=== PATIENT | male | born 1970 | race Caucasian/White ===

== ENCOUNTER 2017-06-04 15:14 | Emergency (ER) | payer OTHER ==
--- NOTE | 2017-06-04 16:30 | DIAGNOSTIC IMAGING REPORT ---
PROCEDURE: CT ABDOMEN/PELVIS W/O CONTRAST INDICATION: Left flank pain TECHNIQUE: Axial CT images were obtained through the abdomen and pelvis without IV contrast. Coronal and sagittal reformations were created. COMPARISON: 08/02/2015 FINDINGS: Clear lung bases. Normal size heart. No hiatal hernia. The unenhanced appearance of the liver, gallbladder, adrenal glands, kidneys, pancreas and spleen is normal. The abdominal aorta is normal in its course and caliber without atherosclerosis. There are no suspicious calcifications, retroperitoneal adenopathy or masses. The stomach, upper bowel loops, and mesentery appears normal. Intact anterior abdominal wall. No free fluid, or inflammation. Surgical changes of left inguinal hernia repair. The unenhanced appearance of the prostate gland, seminal vesicles, urinary bladder, pelvic vessels, and pelvic bowel loops is normal. Normal appendix. No suspicious calcifications, free fluid, or mass. Intact osseous structures. IMPRESSION: 1. No evidence of urinary calcification or obstructive uropathy. 2. Discussed with Dr. Novoa in the emergency room. All CT scans at this facility use dose modulation, iterative reconstruction, and/or weight-based dosing when appropriate to reduce radiation dose to as low as reasonably achievable.
--- NOTE | 2017-06-04 18:03 | ED CLINICAL REPORT ---
Clinical Report - Physicians/Mid Levels [facility] [address] [place] [address] 06/04/2017 15:15 Patient: ANANDA ESPOSITO Time Seen: 15:45 Jun 04 2017. Arrived- By private vehicle. Historian- patient. CPT: ER phys charges level 4 (#[id number]). HISTORY OF PRESENT ILLNESS Chief Complaint: ABDOMINAL PAIN. At its maximum, severity described as moderate. When seen in the E.D., severity described as moderate. It is described as "pain" and it is described as located in the left upper quadrant. This started today and is still present. No nausea, vomiting or diarrhea. Similar symptoms previously: None. Recent medical care: Not recently seen/assessed. REVIEW OF SYSTEMS No constipation, black stools, hematemesis, difficulty with urination or pain with urination. No urinary frequency, bloody stools, fever, headache or sore throat. No chest pain, difficulty breathing, cough, joint pain or skin rash. No chills or back pain. Denies current . All systems otherwise negative, except as recorded above. PAST HISTORY Hypercholesterolemia. Thyroid. ADDITIONAL SURGERIES: Hernia Repair. Laparoscopy. Tonsillectomy. Vasectomy. Medications: Omeprazole Oral. Mirtazapine Oral. Simvastatin Oral. Levothyroxine Sodium Oral. Allergies: None. SOCIAL HISTORY Occasional alcohol use. History of drug use: marijuana. ADDITIONAL NOTES The nursing notes have been reviewed. PHYSICAL EXAM Vital Signs: 06/04/2017 15:19 BP: 170/97. HR: 50. RR: 20. O2 saturation: 98%. Temp: 97 F. Pain level now: 10/10. Appearance: Alert. No acute distress. Eyes: Eyes normal inspection. ENT: Pharynx normal. Neck: Normal inspection. Neck supple. CVS: Normal heart rate and rhythm. Heart sounds normal. Pulses normal. Respiratory: No respiratory distress. Breath sounds normal. Abdomen: Soft. Mild tenderness in the left upper quadrant. No guarding. Bowel sounds normal. Back: Normal inspection. No CVA tenderness. Skin: Skin warm. Normal skin color. No rash. Extremities: Extremities exhibit normal ROM. No lower extremity edema. Neuro: Oriented X 3. No motor deficit. No sensory deficit. LABS, X-RAYS, AND EKG Abdominal CT: No acute disease. Laboratory Tests: UA-Culture if indicated: (KEVIN: 06/04/2017 15:40) ( MsgRcvd 06/04/2017 16:25) Final results Test Result Flag Units (Reference) URINE COLOR YELLOW URINE APPEARANCE CLEAR URINE GLUCOSE NEGATIVE (NEGATIVE) URINE BILIRUBIN NEGATIVE (NEGATIVE) URINE KETONE TRACE (NEGATIVE) URINE SPECIFIC GRAVITY 1.015 (1.010-1.030) URINE PH 6.0 (5.0-8.0) URINE PROTEIN NEGATIVE (NEGATIVE) URINE UROBILINOGEN 0.2 EU/dL (0.2-1.0) URINE NITRITE NEGATIVE (NEGATIVE) URINE BLOOD NEGATIVE (NEGATIVE) URINE LEUK ESTERASE NEGATIVE (NEGATIVE) URINE RBC NONE SEEN rbc/hpf (0-1) URINE WBC RARE wbc/hpf (0-1) URINE EPITHELIAL CELLS RARE EPI/hpf (0-5) URINE BACTERIA NONE SEEN (NONE SEEN) URINE COMMENT CULT NOT INDICATED URINE CULTURES ARE SET-UP BASED ON THE FOLLOWING CRITERIA:POSITIVE NITRITEPOSITIVE LEUKOCYTE ESTERASEGREATER THAN 10 WHITE BLOOD CELLSMODERATE (2+) OR GREATER BACTERIA CBC w Diff: (KEVIN: 06/04/2017 15:20) ( MsgRcvd 06/04/2017 17:37) Final results Test Result Flag Units (Reference) WHITE BLOOD COUNT 6.4 K/uL (4.5-11.5) RED BLOOD COUNT 5.32 M/uL (4.50-5.90) HEMOGLOBIN 15.9 gm/dL (13.5-17.5) HEMATOCRIT 46.6 % (41.0-53.0) MEAN CELL VOLUME 88 fL (80-100) MEAN CORPUSCULAR HGB 30 pg (26-34) MEAN CORPUSCULAR HGB CONC 34 g/dL (31-37) RED CELL DISTRIBUTION WIDTH 12.5 % (11.6-14.8) PLATELET COUNT 251 K/uL (150-400) NEUTROPHIL % 44.0 L % (50-75) LYMPH % 42.0 H % (25-40) MONO % 10.9 % (3-14) EOSINOPHIL % 2.7 % (0-4) BASOPHIL % 0.4 % (0-2) CMP: (KEVIN: 06/04/2017 15:20) ( MsgRcvd 06/04/2017 17:50) Final results Test Result Flag Units (Reference) GLUCOSE 143 H mg/dL (70-110) BUN 12 mg/dL (7-18) CREATININE 1.0 mg/dL (0.6-1.3) Estimated GFR >60 mL/min Estimated GFR- >60 mL/min Note: Persistent reduction over 3 months in eGFR<60 mL/min/1.73 m2 defines CKD. Patients with eGFR values>=60 mL/min/1.73 m2 may also have CKD if evidence ofpersistent proteinuria. Additional information may be foundat www.kidney.org. SODIUM 143 mmol/L (136-145) POTASSIUM 3.4 L mmol/L (3.5-5.1) CHLORIDE 106 mmol/L (98-107) CARBON DIOXIDE 23 mmol/L (21-32) CALCIUM 9.1 mg/dL (8.5-10.1) TOTAL PROTEIN 7.9 g/dL (6.4-8.2) ALBUMIN 4.6 g/dL (3.3-5.0) BILIRUBIN, TOTAL 0.6 mg/dL (0.0-1.0) ALKALINE PHOSPHATASE 72 U/L (46-116) AST (SGOT) 34 U/L (15-37) ALT (SGPT) 58 U/L (12-78) LIPASE 100 U/L (73-393) AMYLASE 38 U/L (25-115) . PROGRESS AND PROCEDURES Course of Care: Thinks he may have had a kidney pain in the past but was more likely low back pain that was radiating to the flank. Heplock Dilaudid 1 mg Iv toradol 30 mg IV Zofran 4 mg IV Patient is stable. The patient's symptoms are now gone. Patient/family counseled. Disposition: Discharged. Condition: stable and improved. CLINICAL IMPRESSION Acute left upper quadrant abdominal pain of unknown cause. INSTRUCTIONS Drink plenty of fluids. Warnings: Further evaluation is necessary. GENERAL WARNINGS: Return or contact your physician immediately if your condition worsens or changes unexpectedly, if not improving as expected, or if other problems arise. Your Current Medications: CONTINUE TAKING THE FOLLOWING MEDICATIONS: Levothyroxine Sodium Oral. Mirtazapine Oral. Omeprazole Oral. Simvastatin Oral. Follow-up: Follow up with your doctor in one week. Call for an appointment. Understanding of the discharge instructions verbalized by patient. (Electronically signed by Jagdish Novoa MD 06/07/2017 22:36)
--- NOTE | 2017-06-04 18:04 | ED ORDER SUMMARY ---
..... Patient: ANANDA ESPOSITO OrderSheet [facility] VisitID: [id number] [address] [place] [address] 47y, M Registration Date/Time: 06/04/2017 ORDER SHEET Weight: 88.4 kg (stated) Allergies: None GENERAL ORDERS: UA-Culture if indicated Urgent (15:50 06/04/2017 Paola WASHINGTON) (15:52 KKnebel R.N.) CT Abd/Pel wo Cont Urgent (15:50 06/04/2017 Paola WASHINGTON) (16:01 KKnebel R.N.) CBC w Diff Urgent (17:30 06/04/2017 Paola WASHINGTON) (Ack 17:41 LNations ER Tech1) (17:57 KKnebel R.N.) CMP Urgent (17:30 06/04/2017 Paola WASHINGTON) (Ack 17:41 LNations ER Tech1) (17:57 KKnebel R.N.) Amylase Urgent (17:30 06/04/2017 Paola WASHINGTON) (Ack 17:42 LNations ER Tech1) (17:57 KKnebel R.N.) Lipase Urgent (17:30 06/04/2017 Paola WASHINGTON) (Ack 17:42 LNations ER Tech1) (17:57 KKnebel R.N.) MEDICATION ORDERS: IV FLUIDS: IV NS : initial bolus 1000 mL (1000 mL/hr), then 150 mL/hr for 4h (NOW); Routine (15:48 06/04/2017 Paola WASHINGTON) (16:00 KKnebel R.N.) Dilaudid IV 1 mg (NOW) (15:49 06/04/2017 Paola WASHINGTON) (16:01 Clinton R.N.) Toradol IV 30 mg (NOW) (15:49 06/04/2017 Paola WASHINGTON) (16:01 RAMYAnemaxime R.N.) Zofran IV 4 mg (NOW) (15:50 06/04/2017 Paola WASHINGTON) (16:01 KKnebel R.N.) ORDER SHEET NOTES: [Electronically signed by Malia Porter R.N. (23:06 06/04/2017)] [Electronically signed by Jagdish Novoa MD (22:36 06/07/2017)] [Electronically locked/signed by Malia Porter R.N. (23:06 06/04/2017)]
--- NOTE | 2017-06-04 18:04 | ED ORDER SUMMARY ---
..... Patient: ANANDA ESPOSITO OrderSheet [facility] VisitID: [id number] [address] [place] [address] 47y, M Registration Date/Time: 06/04/2017 ORDER SHEET Weight: 88.4 kg (stated) Allergies: None GENERAL ORDERS: UA-Culture if indicated Urgent (15:50 06/04/2017 Paola WASHINGTON) (15:52 KKnebel R.N.) CT Abd/Pel wo Cont Urgent (15:50 06/04/2017 Paola WASHINGTON) (16:01 KKnebel R.N.) CBC w Diff Urgent (17:30 06/04/2017 Paola WASHINGTON) (Ack 17:41 LNations ER Tech1) (17:57 KKnebel R.N.) CMP Urgent (17:30 06/04/2017 Paola WASHINGTON) (Ack 17:41 LNations ER Tech1) (17:57 KKnebel R.N.) Amylase Urgent (17:30 06/04/2017 Paola WASHINGTON) (Ack 17:42 LNations ER Tech1) (17:57 KKnebel R.N.) Lipase Urgent (17:30 06/04/2017 Paola WASHINGTON) (Ack 17:42 LNations ER Tech1) (17:57 KKnebel R.N.) MEDICATION ORDERS: IV FLUIDS: IV NS : initial bolus 1000 mL (1000 mL/hr), then 150 mL/hr for 4h (NOW); Routine (15:48 06/04/2017 Paola WASHINGTON) (16:00 KKnebel R.N.) Dilaudid IV 1 mg (NOW) (15:49 06/04/2017 Paola WASHINGTON) (16:01 Clinton R.N.) Toradol IV 30 mg (NOW) (15:49 06/04/2017 Paola WASHINGTON) (16:01 RAMYAnemaxime R.N.) Zofran IV 4 mg (NOW) (15:50 06/04/2017 Paola WASHINGTON) (16:01 KKnebel R.N.) ORDER SHEET NOTES: [Electronically signed by Malia Porter R.N. (23:06 06/04/2017)] [Electronically signed by Jagdish Novoa MD (22:36 06/07/2017)] [Electronically locked/signed by Malia Porter R.N. (23:06 06/04/2017)]
--- NOTE | 2017-06-04 18:04 | ED NURSING NOTES ---
Clinical Report - Nurses [facility] [address] [place] [address] 06/04/2017 15:15 Patient: ANANDA ESPOSITO TRIAGE Triage time 15:Jun 04 2017. Acuity: LEVEL 3. Chief Complaint: ABDOMINAL PAIN. Alert. No acute distress. --15:23 Malia Porter R.N. 15:19 06/04/17. BP: 170/97. HR: 50. RR: 20. O2 saturation: 98%. Temp: 97 F. Pain level now: 08/28. --15:23 Malia Porter R.N. Weight: 88.4 kg stated. Height/Length: 72 inches Per Patient. BMI: 26.5. --15:22 Malia Porter R.N. Medications Levothyroxine Sodium Oral. --15:19 Malia Porter R.N. Simvastatin Oral. --15:20 Malia Porter R.N. Mirtazapine Oral. --15:20 Malia Porter R.N. Omeprazole Oral. --15:20 Malia Porter R.N. Allergies None. --15:20 Malia Porter R.N. History Arrived by private vehicle. Historian: family. Accompanied by family. This started just prior to arrival. He has had nausea. Last oral intake by patient was (about 12 hours ago). PAST MEDICAL HX: Immunizations: up-to-date. SOCIAL HX: Never smoker. Occasional alcohol use. History of drug use: marijuana. Recent travel. He has had contact with a sick individual. No infectious disease exposure. SELF HARM ASSESSMENT: A self harm assessment was performed. The patient answered "no" to the question "Do you have thoughts of harming or killing yourself?" and "Have you recently had thoughts about harming or killing others?". FALL RISK ASSESSMENT: Fall risk assessment completed. No fall risk identified. NUTRITIONAL RISK ASSESSMENT: The nutritional risk assessment revealed no deficiencies. FUNCTIONAL ASSESSMENT: Functional assessment: no impairments noted. LEARNING NEEDS ASSESSMENT: The learning needs assessment revealed no barriers. ABUSE ASSESSMENT: Abuse assessment: The patient was asked "Do you feel safe in your home?". SKIN INTEGRITY ASSESSMENT: Skin integrity risk assessment completed. No skin integrity risk identified. --15: Malia Porter R.N. PROBLEMS: Hypercholesterolemia. Thyroid. --15: Malia Porter R.N. ADDITIONAL SURGERIES: Hernia Repair. Laparoscopy. Tonsillectomy. Vasectomy. --15: Malia Porter R.N. Interventions ID band on patient. To room. --15:23 Malia Porter R.N. PHYSICAL ASSESSMENT To room via wheelchair. GENERAL / NEURO / PSYCH: Alert. Oriented X 4. Appears in pain. RESPIRATORY: Respirations not labored. CVS: Capillary refill less than 2 seconds. GI / : Abdomen soft. Abdominal tenderness in the left side of the abdomen. SKIN: Skin is diaphoretic. --15:24 Malia Porter R.N. NURSING PROGRESS NOTES Pulse oximeter and NIBP monitor placed on patient; monitor alarms on. Patient gowned. Head of bed elevated. Patient identifiers checked. Call light placed in reach. Bed placed in lowest position. Brakes of bed on. --15:24 Malia Porter R.N. 15:35 06/04/2017 Site #1 started via IV in the left forearm with an 20g angiocath, with aseptic technique and good blood return; one attempt. Blood drawn: rainbow set. Labeled in the presence of the patient and sent to the lab. Saline lock flushed with 10 mL saline. --16:00 Malia Porter R.N. 15:50 06/04/2017 Started bag #1 1000 mL IV Fluids IV NS (Saline); bolus of 1000 mL over 1 hour(s) via site #1. Allergies verified and confirmed 5 rights. IV patency established. IV site checked: no pain, redness, or swelling. IV flushed thoroughly pre- and post-medication administration. --16:00 Malia Porter R.N. 15:56 06/04/2017 Dilaudid (HYDROmorphone HCl PF) IVP 1 mg given over 2 minute(s) via site #1. Allergies verified, confirmed 5 rights and sedative warning given to the patient. IV patency established. IV site checked: no pain, redness, or swelling. IV flushed thoroughly pre- and post-medication administration. --16:01 Malia Porter R.N. 15:58 06/04/2017 Toradol IVP 30 mg given over 2 minute(s) via site #1. Allergies verified and confirmed 5 rights. IV patency established. IV site checked: no pain, redness, or swelling. IV flushed thoroughly pre- and post-medication administration. IVP given by RN. --16:01 Malia Porter R.N. 16:01 06/04/2017 Zofran (Ondansetron HCl) IVP 4 mg given over 2 minute(s) via site #1. Allergies verified and confirmed 5 rights. IV patency established. IV site checked: no pain, redness, or swelling. IV flushed thoroughly pre- and post-medication administration. IVP given by RN. --16:01 Malia Porter R.N. Patient transported to CT by stretcher with tech. (:Jun 04 2017). --16:02 Malia Porter R.N. Patient returned from CT by stretcher with tech. (:Jun 04 2017). --16:06 Malia Porter R.N. Reassessment after fluids administered and medication administered. He is resting quietly. Overall patient status- he states feels better. GI / : The patient reports abdominal pain located in the left side of the abdomen is still present but improving. SKIN: Skin is warm. Skin color within normal limits. --16:08 Malia Porter R.N. 16:07 06/04/17. BP: 136/80. HR: 64. RR: 16. O2 saturation: 100%. Pain level now: 02/26. --16:08 Malia Porter R.N. 17:04 06/04/17. BP: 131/86. HR: 56. RR: 14. O2 saturation: 97%. --17:04 Jennifer Moreno R.N. DISPOSITION / DISCHARGE 18:15 06/04/17. Departure time: 1809. Condition at departure: improved and stable. No learning barriers present. Discharge instructions provided and reviewed with the patient. Patient verbalized understanding. Written instructions provided in Grenadian. The patient was discharged by the physician. He was discharged home. He left the Emergency Department ambulatory and via private vehicle. Patient driving. --18:15 Satish Gauthier R.N. 18:13 06/04/17. BP: 134/86. HR: 64. RR: 15. O2 saturation: 97% on room air. Pain level now 0/10. --18:15 Satish Gauthier R.N. Locked/Released at 06/04/2017 23:06 by Malia Porter R.N.
--- NOTE | 2017-06-07 22:36 | ED MAR SUMMARY ---
..... Medication Administration Record [facility] [address] [place] [address] Patient: ANANDA ESPOSITO Visit ID: [id number] 47y, M Weight: 88.4 kg Height/Length: 72 in BMI: 26.5 ALLERGIES: None Start 15:50 06/04/2017 Malia Porter R.N. Medication Administered: IV NS (SALINE), Dose: IV Fluids, Bolus: 1000 mL over 1 hour(s), Dispensed: 1000 mL bag, Site: #1 left forearm. Medication Ordered: IV NS : initial bolus 1000 mL (1000 mL/hr), then 150 mL/hr for 4h (NOW); Routine. Given 15:56 06/04/2017 Malia Porter R.N. Medication Administered: DILAUDID [IVP] (HYDROMORPHONE HCL PF), Dose: 1 mg IVP over 2 minute(s), Site: #1 left forearm. Medication Ordered: Dilaudid IV 1 mg (NOW). Given 15:58 06/04/2017 Malia Porter R.N. Medication Administered: TORADOL [IVP], Dose: 30 mg IVP over 2 minute(s), Site: #1 left forearm. Medication Ordered: Toradol IV 30 mg (NOW). Given 16:01 06/04/2017 Malia Porter R.N. Medication Administered: ZOFRAN [IVP] (ONDANSETRON HCL), Dose: 4 mg IVP over 2 minute(s), Site: #1 left forearm. Medication Ordered: Zofran IV 4 mg (NOW).
--- NOTE | 2017-06-07 22:36 | ED MAR SUMMARY ---
..... Medication Administration Record [address] [place] [address] Patient: ANANDA ESPOSITO Visit ID: [id number] 47y, M Weight: 88.4 kg Height/Length: 72 in BMI: 26.5 ALLERGIES: None Start 15:50 06/04/2017 Malia Porter R.N. Medication Administered: IV NS (SALINE), Dose: IV Fluids, Bolus: 1000 mL over 1 hour(s), Dispensed: 1000 mL bag, Site: #1 left forearm. Medication Ordered: IV NS : initial bolus 1000 mL (1000 mL/hr), then 150 mL/hr for 4h (NOW); Routine. Given 15:56 06/04/2017 Malia Porter R.N. Medication Administered: DILAUDID [IVP] (HYDROMORPHONE HCL PF), Dose: 1 mg IVP over 2 minute(s), Site: #1 left forearm. Medication Ordered: Dilaudid IV 1 mg (NOW). Given 15:58 06/04/2017 Malia Porter R.N. Medication Administered: TORADOL [IVP], Dose: 30 mg IVP over 2 minute(s), Site: #1 left forearm. Medication Ordered: Toradol IV 30 mg (NOW). Given 16:01 06/04/2017 Malia Porter R.N. Medication Administered: ZOFRAN [IVP] (ONDANSETRON HCL), Dose: 4 mg IVP over 2 minute(s), Site: #1 left forearm. Medication Ordered: Zofran IV 4 mg (NOW).
--- NOTE | 2017-06-07 22:36 | ED MED RECONCILIATION SUMMARY ---
Patient: ANANDA ESPOSITO Medication Reconciliation Report [facility] VisitID: [id number] [address] [place] [address] 47y, M Registration Date/Time: 06/04/2017 Weight: 88.4 kg Height/Length: 72 in. BMI: 26.5 ALLERGIES: None The patient's Home Medications are listed below: CONTINUE TAKING THE FOLLOWING MEDICATIONS: Levothyroxine Sodium Oral Mirtazapine Oral Omeprazole Oral Simvastatin Oral The source(s) of the original Home Medication information: Not obtained. The following Medications were given to the patient in the Emergency Department: IV NS IV Fluids bolus 1000 mL over 1 hour(s), administered: 06/04/2017 3:50:00 PM Dilaudid [IVP] IVP 1 mg, administered: 06/04/2017 3:56:00 PM Toradol [IVP] IVP 30 mg, administered: 06/04/2017 3:58:00 PM Zofran [IVP] IVP 4 mg, administered: 06/04/2017 4:01:00 PM The following Medications were prescribed to the patient: None.
--- NOTE | 2017-06-07 22:36 | ED MED RECONCILIATION SUMMARY ---
Patient: ANANDA ESPOSITO Medication Reconciliation Report [facility] VisitID: [id number] [address] [place] [address] 47y, M Registration Date/Time: 06/04/2017 Weight: 88.4 kg Height/Length: 72 in. BMI: 26.5 ALLERGIES: None The patient's Home Medications are listed below: CONTINUE TAKING THE FOLLOWING MEDICATIONS: Levothyroxine Sodium Oral Mirtazapine Oral Omeprazole Oral Simvastatin Oral The source(s) of the original Home Medication information: Not obtained. The following Medications were given to the patient in the Emergency Department: IV NS IV Fluids bolus 1000 mL over 1 hour(s), administered: 06/04/2017 3:50:00 PM Dilaudid [IVP] IVP 1 mg, administered: 06/04/2017 3:56:00 PM Toradol [IVP] IVP 30 mg, administered: 06/04/2017 3:58:00 PM Zofran [IVP] IVP 4 mg, administered: 06/04/2017 4:01:00 PM The following Medications were prescribed to the patient: None.
--- NOTE | 2017-06-07 22:36 | ED DISCHARGE INSTRUCTIONS ---
Patient: ANANDA ESPOSITO General Instructions [facility] VisitID: [id number] [address] [place] [address] 47y, M Registration Date/Time: 06/04/2017 Acute left upper quadrant abdominal pain of unknown cause. INSTRUCTIONS Drink plenty of fluids. Warnings: Further evaluation is necessary. GENERAL WARNINGS: Return or contact your physician immediately if your condition worsens or changes unexpectedly, if not improving as expected, or if other problems arise. Your Current Medications: CONTINUE TAKING THE FOLLOWING MEDICATIONS: Levothyroxine Sodium Oral. Mirtazapine Oral. Omeprazole Oral. Simvastatin Oral. Follow-up: Follow up with your doctor in one week. Call for an appointment. Understanding of the discharge instructions verbalized by patient. ADDITIONAL INFORMATION Abdominal Pain,Uncertain Cause [Male] Based on your visit today, the exact cause of your abdominalpain is not clear. Your exam and tests do not indicate a dangerous cause at this time. However, the signs of a serious problem may take more time to appear. Although your evaluation was reassuring today, sometimes early in the course of many conditions, exam and lab tests can appear normal. Therefore, it is important for you to watch for any new symptoms or worsening of your condition. Causes It may not be obvious what caused your symptoms. Pay attention to things that do seem to make your symptoms worse or better and discuss this with your doctor when you follow up. Diagnosis The evaluation of abdominal pain in the emergency department may onlyrequire an exam by the doctor or it may include blood, urine or imaging studies, depending on many factors. Sometimes exams and tests can identify a cause but in many cases, a clear cause is not found. Further testing at follow up visits may help to suggest a clear diagnosis. Home Care Rest as much as possible until your next exam. Try to avoid any medications (unless otherwise directed by your doctor), foods, activities, or other factors that you may have contributed to your symptoms. Try to eat foods that you know that you have tolerated well in the past. Certain diets may be recommended for some conditions that cause abdominal pain. However, since the cause of your symptoms may not be clear, discuss your diet more with your primary care provider or specialist for further recommendations. Eating several small meals per day as opposed to 2 or 3 larger meals may help. Monitor closely for anything that may make your symptoms worse or better. Pay close attention to symptoms below that may indicate worsening of your condition. Follow Up and Precautions See your doctoras instructed or sooneror if your symptoms are not improving.In some cases, you may need more testing. When to Seek Medical Attention Contact your doctor or see medical attention ifany of the following occur: Pain is becoming worse You are unable to take your medications due to excessive vomiting Swelling of the abdomen Fever of 100.4F (38C) or higher, or as directed by your health care provider Blood in vomit or bowel movements (dark red or black color) Jaundice (yellow color of eyes and skin) New onset of weakness, dizziness or fainting New onset of chest, arm, back, neck or jaw pain You have been given the following additional information: Abdominal Pain, Unknown Cause, (Male) (Electronically signed by Jagdish Novoa MD 06/07/2017 22:36)
== END 2017-06-04 18:10 | disposition home or self-care (01) ==
LOC: ED SRH 15:14
DX: R10.12 Left upper quadrant pain (principal); E78.00 Pure hypercholesterolemia, unspecified; E07.9 Disorder of thyroid, unspecified; Z79.899 Other long term (current) drug therapy
CPT/HCPCS: 90004; 90074; 90100; 92235; 92530; 95059